=== PATIENT | male | born 1950 | race Caucasian/White ===

== ENCOUNTER 2020-02-20 11:13 | Inpatient (IN) ==
[2020-02-20] MEDS ORDERED: methylPREDNISolone 125 MG/2 ML VIAL IVP ONE (11:35)
[2020-02-20] MEDS ORDERED: cefTRIAXone 1,000 MG in Water for inj. (sterile) 10 ML IVP ONE (11:35)
[2020-02-20] MEDS ORDERED: Albuterol 2.5 MG/3 ML NEBULIZER IH ONE (11:36)
[2020-02-20] MEDS ORDERED: Isovue-370 500 ML BOTTLE IVP ONE (11:37)
[2020-02-20 11:49] LABS: Basophils % 0.3 %; Eosinophils # 0.2 K/mcL (0.0-0.6); Eosinophils % 5.1 %; Hematocrit 31.8 % (37.5-50.1); Hemoglobin 9.3 g/dL (12.9-16.9); Immature Granulocytes % 0.5 % (0-4); Lymphocytes # 0.6 K/mcL (0.6-4.6); Lymphocytes % 15.7 %; Mean Corpuscular HGB Conc 29.2 g/dL (31.6-35.5); Mean Corpuscular Hemoglobin 23.8 pg (28.0-33.3); Mean Corpuscular Volume 81.3 fL (83.0-100.0); Mean Platelet Volume 9.3 fL (9.4-12.4); Monocytes # 0.6 K/mcL (0.0-1.3); Monocytes % 16.8 %; Neutrophils # 2.3 K/mcL (1.6-8.9); Platelet Count 367 K/mcL (140-400); Red Blood Count 3.91 M/mcL (4.19-5.50); Red Cell Distribution Width 18.1 % (11.5-14.5); Segmented Neutrophils % 61.6 %; White Blood Count 3.7 K/mcL (4.3-11.1)
[2020-02-20] MEDS: Azithromycin 500 MG in 0.9 % Sodium Chloride 250 ML IVPB ONE (11:50)
[2020-02-20 11:51] LABS: INR 1.8; Prothrombin Time 20.8 Seconds (9.4-12.1)
[2020-02-20 12:16] LABS: BUN/Creatinine Ratio 10 (6-26); Blood Urea Nitrogen 15 mg/dL (8-23); Calcium 8.9 mg/dL (8.6-10.3); Carbon Dioxide 30 mEq/L (23-29); Chloride 99 mEq/L (98-107); Glucose 81 mg/dL (70-105); Osmolality,Calculated 284 (280-300); Sodium 137 mEq/L (136-145); Troponin I < 0.03 ng/mL (< 0.04); eGFR For African Americans 58 (> 60); eGFR For Non-African Americans 48 (> 60)
[2020-02-20 13:54] LABS: Adenovirus Not Detected (Not Detect); Bordetella Pertussis Not Detected (Not Detect); Chlamydophila pneumoniae Not Detected (Not Detect); Coronavirus 229E Not Detected (Not Detect); Coronavirus HKU1 Not Detected (Not Detect); Coronavirus NL63 Not Detected (Not Detect); Coronavirus OC43 Not Detected (Not Detect); Human Metapneumovirus Not Detected (Not Detect); Human Rhinovirus/Enterovirus Not Detected (Not Detect); Influenza A Subtype 2009 H1 Not Detected (Not Detect); Influenza B Not Detected (Not Detect); Mycoplasma pneumoniae Not Detected (Not Detect); Parainfluenza Virus 1 Not Detected (Not Detect); Parainfluenza Virus 2 Not Detected (Not Detect); Parainfluenza Virus 3 Not Detected (Not Detect); Parainfluenza Virus 4 Not Detected (Not Detect); Respiratory Syncytial Virus Not Detected (Not Detect); SARS-CoV-2 Not Detected (Not Detect)
[2020-02-20] MEDS ORDERED: *HR* Promethazine 25 MG/ML VIAL IVP PRN (14:27)
[2020-02-20] MEDS ORDERED: Naloxone 0.4 MG/ML INJ IVP PRN (14:27)
[2020-02-20] MEDS ORDERED: *HR* Enoxaparin 100 MG/ML SYRINGE SQ ONE (14:32)
[2020-02-20] MEDS ORDERED: Albuterol 2.5 MG/3 ML NEBULIZER IH PRN (15:28)
[2020-02-20] MEDS: Albuterol 2.5 MG/3 ML NEBULIZER IH SCH ×2 (15:44→20:10)
[2020-02-20 16:36] LABS: Bilirubin,Urine Negative (Negative); Blood,Urine Negative (Negative); Clarity,Urine Clear (Clear); Color,Urine Light-Yellow (Yellow); Glucose,Urine (UA) Normal (Normal); Ketones,Urine Negative (Negative); Leukocyte Esterase,Urine Negative (Negative); Nitrite,Urine Negative (Negative); PH,Urine 6.5 pH Units (5.0-8.0); Protein,Urine Negative (Neg-Trace); Specific Gravity,Urine 1.019 (1.010-1.025); Urobilinogen,Urine Normal (Normal)
[2020-02-20] MEDS: *HR* Enoxaparin 100 MG/ML SYRINGE SQ SCH (16:48)
[2020-02-20] MEDS ORDERED: *HR* Warfarin 5 MG TABLET PO ONE (18:00)
[2020-02-20] MEDS ORDERED: Warfarin perPT PO PRN (18:00)
[2020-02-20] MEDS: rOPINIRole 1 MG TABLET PO SCH (20:55)
[2020-02-20] MEDS: traZODone 50 MG TABLET PO SCH (20:55)
[2020-02-20] MEDS: clonazePAM 1 MG TABLET PO SCH (20:55)
[2020-02-21] MEDS ORDERED: Melatonin 3 MG TABLET PO ONE (00:01)
[2020-02-21] MEDS: Albuterol 2.5 MG/3 ML NEBULIZER IH SCH ×6 (00:11→20:01)
[2020-02-21] MEDS: *HR* Enoxaparin 100 MG/ML SYRINGE SQ SCH (03:30)
[2020-02-21] MEDS: clonazePAM 0.5 MG TABLET PO SCH (03:30)
[2020-02-21 05:48] LABS: Prothrombin Time 23.2 Seconds (9.4-12.1)
[2020-02-21 06:02] LABS: Hematocrit 28.2 % (37.5-50.1); Hemoglobin 8.3 g/dL (12.9-16.9); Immature Granulocytes % 0.6 % (0-4); Lymphocytes # 0.3 K/mcL (0.6-4.6); Lymphocytes % 8.2 %; Mean Corpuscular HGB Conc 29.4 g/dL (31.6-35.5); Mean Corpuscular Hemoglobin 23.6 pg (28.0-33.3); Mean Corpuscular Volume 80.1 fL (83.0-100.0); Mean Platelet Volume 9.7 fL (9.4-12.4); Monocytes # 0.1 K/mcL (0.0-1.3); Neutrophils # 3.1 K/mcL (1.6-8.9); Platelet Count 373 K/mcL (140-400); Red Blood Count 3.52 M/mcL (4.19-5.50); Red Cell Distribution Width 17.7 % (11.5-14.5); Segmented Neutrophils % 89.2 %; White Blood Count 3.4 K/mcL (4.3-11.1)
[2020-02-21 06:44] LABS: BUN/Creatinine Ratio 16 (6-26); Blood Urea Nitrogen 22 mg/dL (8-23); Calcium 8.5 mg/dL (8.6-10.3); Carbon Dioxide 26 mEq/L (23-29); Chloride 97 mEq/L (98-107); Glucose 172 mg/dL (70-105); Magnesium 1.8 mg/dL (1.6-2.6); Osmolality,Calculated 287 (280-300); Phosphorous 2.9 mg/dL (2.7-4.5); Potassium 3.5 mEq/L (3.5-5.1); Sodium 135 mEq/L (136-145); eGFR For African Americans > 60 (> 60); eGFR For Non-African Americans 50 (> 60)
[2020-02-21] MEDS: MethylPREDNISolone 40 MG/ML VIAL IVP SCH (08:03)
[2020-02-21] MEDS: rOPINIRole 1 MG TABLET PO SCH ×2 (08:03→20:34)
[2020-02-21] MEDS ORDERED: Ergocalciferol (VIT D2) 50,000 UNIT (1.25MG) CAP PO SCH (10:30)
[2020-02-21] MEDS ORDERED: Azithromycin 500 MG in 0.9 % Sodium Chloride 250 ML IVPB SCH (12:00)
[2020-02-21] MEDS: cefTRIAXone 1,000 MG in 0.9 % Sodium Chloride Mini Bag 100 ML IVPB SCH (12:06)
[2020-02-21] MEDS: Aspirin 325 MG TABLET PO SCH (12:07)
[2020-02-21] MEDS: Gabapentin 300 MG CAPSULE PO SCH ×3 (12:07→20:34)
[2020-02-21] MEDS: Azithromycin 500 MG in 0.9 % Sodium Chloride 250 ML IVPB SCH (13:09)
[2020-02-21] MEDS ORDERED: Ondansetron 4 MG/2 ML VIAL IVP PRN (17:08)
[2020-02-21] MEDS ORDERED: *HR* Warfarin 5 MG TABLET PO ONE (18:00)
[2020-02-21] MEDS: allopurinoL 100 MG TABLET PO SCH (18:26)
[2020-02-21] MEDS ORDERED: clonazePAM 1 MG TABLET PO SCH (20:00)
[2020-02-21] MEDS ORDERED: 0.9 % Sodium Chloride 250 ML ONE (20:23)
[2020-02-21] MEDS: traZODone 50 MG TABLET PO SCH (20:34)
[2020-02-21] MEDS: clonazePAM 1 MG TABLET PO SCH (20:35)
[2020-02-22] MEDS: Albuterol 2.5 MG/3 ML NEBULIZER IH SCH ×6 (00:06→19:55)
[2020-02-22 01:20] LABS: Hemoglobin 8.9 g/dL (12.9-16.9); Immature Granulocytes % 0.7 % (0-4); Lymphocytes # 0.4 K/mcL (0.6-4.6); Lymphocytes % 4.2 %; Mean Corpuscular HGB Conc 29.7 g/dL (31.6-35.5); Mean Corpuscular Hemoglobin 23.7 pg (28.0-33.3); Mean Corpuscular Volume 79.8 fL (83.0-100.0); Mean Platelet Volume 9.2 fL (9.4-12.4); Monocytes # 0.7 K/mcL (0.0-1.3); Platelet Count 391 K/mcL (140-400); Red Blood Count 3.76 M/mcL (4.19-5.50); Red Cell Distribution Width 17.7 % (11.5-14.5); Segmented Neutrophils % 88.1 %
[2020-02-22 01:23] LABS: INR 2.1; Prothrombin Time 24.4 Seconds (9.4-12.1)
[2020-02-22 01:26] LABS: Neutrophils # 8.6 K/mcL (1.6-8.9); White Blood Count 9.7 K/mcL (4.3-11.1)
[2020-02-22 01:37] LABS: BUN/Creatinine Ratio 24 (6-26); Blood Urea Nitrogen 29 mg/dL (8-23); Calcium 8.3 mg/dL (8.6-10.3); Carbon Dioxide 25 mEq/L (23-29); Chloride 97 mEq/L (98-107); Glucose 142 mg/dL (70-105); Osmolality,Calculated 286 (280-300); Phosphorous 3.7 mg/dL (2.7-4.5); Potassium 3.9 mEq/L (3.5-5.1); Sodium 134 mEq/L (136-145); eGFR For African Americans > 60 (> 60); eGFR For Non-African Americans 58 (> 60)
[2020-02-22] MEDS: clonazePAM 0.5 MG TABLET PO SCH (04:30)
[2020-02-22] MEDS: *HR* HYDROcodone/Acet 5/325 mg TABLET PO PRN ×2 (08:11→23:00)
[2020-02-22] MEDS: Aspirin 325 MG TABLET PO SCH (08:11)
[2020-02-22] MEDS: Gabapentin 300 MG CAPSULE PO SCH ×3 (08:11→20:07)
[2020-02-22] MEDS: rOPINIRole 1 MG TABLET PO SCH ×2 (08:11→20:08)
[2020-02-22] MEDS: MethylPREDNISolone 40 MG/ML VIAL IVP SCH (08:12)
[2020-02-22] MEDS: cefTRIAXone 1,000 MG in 0.9 % Sodium Chloride Mini Bag 100 ML IVPB SCH (12:09)
[2020-02-22] MEDS: Azithromycin 500 MG in 0.9 % Sodium Chloride 250 ML IVPB SCH (13:01)
[2020-02-22] MEDS: allopurinoL 100 MG TABLET PO SCH (18:41)
[2020-02-22] MEDS: clonazePAM 1 MG TABLET PO SCH (20:07)
[2020-02-22] MEDS: traZODone 50 MG TABLET PO SCH (20:08)
[2020-02-23] MEDS: Albuterol 2.5 MG/3 ML NEBULIZER IH SCH ×7 (00:14→23:12)
[2020-02-23 01:13] LABS: Basophils % 0.1 %; Eosinophils % 0.4 %; Hematocrit 29.2 % (37.5-50.1); Hemoglobin 8.5 g/dL (12.9-16.9); Immature Granulocytes % 0.8 % (0-4); Lymphocytes # 0.4 K/mcL (0.6-4.6); Lymphocytes % 4.8 %; Mean Corpuscular HGB Conc 29.1 g/dL (31.6-35.5); Mean Corpuscular Hemoglobin 23.4 pg (28.0-33.3); Mean Corpuscular Volume 80.2 fL (83.0-100.0); Mean Platelet Volume 9.1 fL (9.4-12.4); Monocytes # 0.7 K/mcL (0.0-1.3); Monocytes % 7.7 %; Neutrophils # 7.2 K/mcL (1.6-8.9); Platelet Count 396 K/mcL (140-400); Red Blood Count 3.64 M/mcL (4.19-5.50); Segmented Neutrophils % 86.2 %; White Blood Count 8.4 K/mcL (4.3-11.1)
[2020-02-23 01:16] LABS: INR 2.1
[2020-02-23 01:31] LABS: BUN/Creatinine Ratio 23 (6-26); Blood Urea Nitrogen 27 mg/dL (8-23); Calcium 8.1 mg/dL (8.6-10.3); Carbon Dioxide 27 mEq/L (23-29); Chloride 103 mEq/L (98-107); Glucose 141 mg/dL (70-105); Osmolality,Calculated 293 (280-300); Potassium 4.2 mEq/L (3.5-5.1); Sodium 138 mEq/L (136-145); eGFR For African Americans > 60 (> 60); eGFR For Non-African Americans > 60 (> 60)
[2020-02-23] MEDS: clonazePAM 0.5 MG TABLET PO SCH (05:20)
[2020-02-23] MEDS ORDERED: *HR* FentaNYL (PF) 100 MCG/2 ML VIAL IVP ONE (08:47)
[2020-02-23] MEDS ORDERED: *HR* EPINEPHrine 1 MG/10 ML SYRINGE INTRATRACH PRN (08:47)
[2020-02-23] MEDS ORDERED: *HR* Midazolam HCl 5 MG/5 ML VIAL IVP ONE ×2 (08:47→08:58)
[2020-02-23] MEDS ORDERED: Lidocaine Viscous Oral Soln 15 ML SOLUTION MM ONE (08:47)
[2020-02-23] MEDS ORDERED: *HR* FentaNYL (PF) 100 MCG/2 ML VIAL ONE (08:58)
[2020-02-23] MEDS ORDERED: Lidocaine Viscous Oral Soln 15 ML SOLUTION ONE (09:01)
[2020-02-23] MEDS: MethylPREDNISolone 40 MG/ML VIAL IVP SCH (11:34)
[2020-02-23] MEDS: rOPINIRole 1 MG TABLET PO SCH ×2 (11:34→21:57)
[2020-02-23] MEDS: Gabapentin 300 MG CAPSULE PO SCH ×3 (11:34→21:57)
[2020-02-23] MEDS: Aspirin 325 MG TABLET PO SCH (11:34)
[2020-02-23] MEDS: cefTRIAXone 1,000 MG in 0.9 % Sodium Chloride Mini Bag 100 ML IVPB SCH (12:05)
[2020-02-23] MEDS: Azithromycin 500 MG in 0.9 % Sodium Chloride 250 ML IVPB SCH (12:35)
[2020-02-23 15:47] LABS: Appearance of Body Fluid Hazy (Clear); Volume of Body Fluid 16 mL
[2020-02-23] MEDS: allopurinoL 100 MG TABLET PO SCH (17:46)
[2020-02-23] MEDS ORDERED: *HR* Warfarin 5 MG TABLET PO ONE (18:00)
[2020-02-23] MEDS: clonazePAM 1 MG TABLET PO SCH (21:57)
[2020-02-23] MEDS: traZODone 50 MG TABLET PO SCH (21:57)
[2020-02-24 03:34] LABS: Eosinophils % 0.1 %; INR 1.7; Prothrombin Time 19.4 Seconds (9.4-12.1); Red Cell Distribution Width 18.1 % (11.5-14.5)
[2020-02-24 03:35] LABS: Basophils % 0.1 %; Immature Granulocytes % 1.6 % (0-4); Lymphocytes # 0.4 K/mcL (0.6-4.6); Lymphocytes % 5.2 %; Mean Corpuscular Hemoglobin 24.1 pg (28.0-33.3); Mean Corpuscular Volume 82.9 fL (83.0-100.0); Mean Platelet Volume 9.5 fL (9.4-12.4); Monocytes # 0.7 K/mcL (0.0-1.3); Monocytes % 8.9 %; Neutrophils # 6.4 K/mcL (1.6-8.9); Nucleated Red Blood Cells 0.3 /100 WBC (0); Platelet Count 423 K/mcL (140-400); Red Blood Count 3.74 M/mcL (4.19-5.50); Segmented Neutrophils % 84.1 %; White Blood Count 7.6 K/mcL (4.3-11.1)
[2020-02-24] MEDS: Albuterol 2.5 MG/3 ML NEBULIZER IH SCH ×6 (03:36→23:16)
[2020-02-24 03:52] LABS: BUN/Creatinine Ratio 22 (6-26); Blood Urea Nitrogen 26 mg/dL (8-23); Calcium 8.1 mg/dL (8.6-10.3); Carbon Dioxide 26 mEq/L (23-29); Chloride 107 mEq/L (98-107); Glucose 95 mg/dL (70-105); Osmolality,Calculated 295 (280-300); Potassium 4.6 mEq/L (3.5-5.1); Sodium 140 mEq/L (136-145); eGFR For African Americans > 60 (> 60); eGFR For Non-African Americans 60 (> 60)
[2020-02-24] MEDS: clonazePAM 0.5 MG TABLET PO SCH (03:52)
[2020-02-24] MEDS: Menthol 9.1 MG LOZENGE PO PRN (03:52)
[2020-02-24] MEDS: MethylPREDNISolone 40 MG/ML VIAL IVP SCH (07:52)
[2020-02-24] MEDS: rOPINIRole 1 MG TABLET PO SCH ×2 (07:52→20:01)
[2020-02-24] MEDS: Gabapentin 300 MG CAPSULE PO SCH ×3 (07:52→20:01)
[2020-02-24] MEDS: Aspirin 325 MG TABLET PO SCH (07:52)
[2020-02-24] MEDS: *HR* Enoxaparin 120 MG/0.8 ML SYRINGE SQ SCH ×2 (09:13→17:06)
[2020-02-24] MEDS: cefTRIAXone 1,000 MG in 0.9 % Sodium Chloride Mini Bag 100 ML IVPB SCH (12:54)
[2020-02-24] MEDS: Azithromycin 500 MG in 0.9 % Sodium Chloride 250 ML IVPB ONE (14:03)
[2020-02-24] MEDS: Azithromycin 500 MG in 0.9 % Sodium Chloride 250 ML IVPB SCH (14:04)
[2020-02-24] MEDS: allopurinoL 100 MG TABLET PO SCH (17:06)
[2020-02-24] MEDS: Acetaminophen 325 MG TABLET PO PRN (17:11)
[2020-02-24] MEDS ORDERED: *HR* Warfarin 5 MG TABLET PO ONE (18:00)
[2020-02-24] MEDS: traZODone 50 MG TABLET PO SCH (20:01)
[2020-02-24] MEDS: clonazePAM 1 MG TABLET PO SCH (20:01)
[2020-02-25] MEDS: Albuterol 2.5 MG/3 ML NEBULIZER IH SCH ×6 (03:48→23:26)
[2020-02-25 04:25] LABS: Hematocrit 31.4 % (37.5-50.1); Hemoglobin 9.1 g/dL (12.9-16.9); Mean Corpuscular Hemoglobin 23.5 pg (28.0-33.3); Mean Corpuscular Volume 80.9 fL (83.0-100.0); Mean Platelet Volume 8.9 fL (9.4-12.4); Platelet Count 419 K/mcL (140-400); Red Blood Count 3.88 M/mcL (4.19-5.50); Red Cell Distribution Width 18.1 % (11.5-14.5); White Blood Count 9.9 K/mcL (4.3-11.1)
[2020-02-25 04:29] LABS: INR 1.7; Prothrombin Time 19.5 Seconds (9.4-12.1)
[2020-02-25] MEDS: *HR* Enoxaparin 120 MG/0.8 ML SYRINGE SQ SCH ×2 (04:32→16:54)
[2020-02-25] MEDS: clonazePAM 0.5 MG TABLET PO SCH (04:32)
[2020-02-25 04:44] LABS: BUN/Creatinine Ratio 18 (6-26); Blood Urea Nitrogen 24 mg/dL (8-23); Calcium 8.4 mg/dL (8.6-10.3); Carbon Dioxide 31 mEq/L (23-29); Chloride 106 mEq/L (98-107); Glucose 102 mg/dL (70-105); Osmolality,Calculated 296 (280-300); Potassium 4.4 mEq/L (3.5-5.1); Sodium 141 mEq/L (136-145); eGFR For African Americans > 60 (> 60); eGFR For Non-African Americans 54 (> 60)
[2020-02-25 05:25] LABS: Lymphocytes # 1.2 K/mcL (0.6-4.6); Monocytes # 0.2 K/mcL (0.0-1.3); Neutrophils # 8.5 K/mcL (1.6-8.9); Platelet Estimate Normal (Normal)
[2020-02-25] MEDS: Gabapentin 300 MG CAPSULE PO SCH ×3 (07:34→20:17)
[2020-02-25] MEDS: Aspirin 325 MG TABLET PO SCH (07:34)
[2020-02-25] MEDS: MethylPREDNISolone 40 MG/ML VIAL IVP SCH (07:34)
[2020-02-25] MEDS: rOPINIRole 1 MG TABLET PO SCH ×2 (07:34→20:17)
[2020-02-25] MEDS: cefTRIAXone 1,000 MG in 0.9 % Sodium Chloride Mini Bag 100 ML IVPB SCH (12:02)
[2020-02-25] MEDS: Acetaminophen 325 MG TABLET PO PRN (16:53)
[2020-02-25] MEDS ORDERED: *HR* Warfarin 7.5 MG TABLET PO ONE (18:00)
[2020-02-25] MEDS: clonazePAM 1 MG TABLET PO SCH (19:28)
[2020-02-25] MEDS: traZODone 50 MG TABLET PO SCH (20:17)
[2020-02-26 01:11] LABS: INR 1.9; Prothrombin Time 21.5 Seconds (9.4-12.1)
[2020-02-26 01:25] LABS: BUN/Creatinine Ratio 22 (6-26); Blood Urea Nitrogen 26 mg/dL (8-23); Calcium 8.3 mg/dL (8.6-10.3); Carbon Dioxide 27 mEq/L (23-29); Chloride 105 mEq/L (98-107); Glucose 133 mg/dL (70-105); Osmolality,Calculated 293 (280-300); Potassium 4.5 mEq/L (3.5-5.1); Sodium 138 mEq/L (136-145); eGFR For African Americans > 60 (> 60); eGFR For Non-African Americans > 60 (> 60)
[2020-02-26] MEDS: clonazePAM 0.5 MG TABLET PO SCH (03:35)
[2020-02-26] MEDS: Albuterol 2.5 MG/3 ML NEBULIZER IH SCH ×6 (04:11→21:58)
[2020-02-26] MEDS: *HR* Enoxaparin 120 MG/0.8 ML SYRINGE SQ SCH ×2 (05:51→16:53)
[2020-02-26] MEDS: MethylPREDNISolone 40 MG/ML VIAL IVP SCH (08:01)
[2020-02-26] MEDS: Gabapentin 300 MG CAPSULE PO SCH ×3 (08:01→19:54)
[2020-02-26] MEDS: Aspirin 325 MG TABLET PO SCH (08:01)
[2020-02-26] MEDS: rOPINIRole 1 MG TABLET PO SCH ×2 (08:01→19:54)
[2020-02-26] MEDS: Acetaminophen 325 MG TABLET PO PRN (10:23)
[2020-02-26] MEDS: cefTRIAXone 1,000 MG in 0.9 % Sodium Chloride Mini Bag 100 ML IVPB SCH (12:20)
[2020-02-26] MEDS: Menthol 9.1 MG LOZENGE PO PRN ×2 (16:53→20:04)
[2020-02-26] MEDS ORDERED: *HR* Warfarin 5 MG TABLET PO ONE (18:00)
[2020-02-26] MEDS: clonazePAM 1 MG TABLET PO SCH (19:53)
[2020-02-26] MEDS: traZODone 50 MG TABLET PO SCH (19:54)
[2020-02-27 01:35] LABS: INR 1.7; Prothrombin Time 19.8 Seconds (9.4-12.1)
[2020-02-27 01:56] LABS: BUN/Creatinine Ratio 19 (6-26); Blood Urea Nitrogen 24 mg/dL (8-23); Carbon Dioxide 28 mEq/L (23-29); Chloride 105 mEq/L (98-107); Glucose 132 mg/dL (70-105); Osmolality,Calculated 294 (280-300); Potassium 4.8 mEq/L (3.5-5.1); Sodium 139 mEq/L (136-145); eGFR For African Americans > 60 (> 60); eGFR For Non-African Americans 57 (> 60)
[2020-02-27] MEDS: Albuterol 2.5 MG/3 ML NEBULIZER IH SCH ×3 (03:11→11:16)
[2020-02-27] MEDS: clonazePAM 0.5 MG TABLET PO SCH (04:38)
[2020-02-27] MEDS: *HR* Enoxaparin 120 MG/0.8 ML SYRINGE SQ SCH (04:38)
[2020-02-27 06:28] VITALS: BP 121/64
[2020-02-27] MEDS: Aspirin 325 MG TABLET PO SCH (10:38)
[2020-02-27] MEDS: Gabapentin 300 MG CAPSULE PO SCH (10:38)
[2020-02-27] MEDS: rOPINIRole 1 MG TABLET PO SCH (10:38)
[2020-02-27] MEDS: MethylPREDNISolone 40 MG/ML VIAL IVP SCH (10:38)
[2020-02-27] MEDS ORDERED: FLU Vac QV 20-21 (6Month+)/PF 0.5 ML SYRINGE IM ONE (10:50)
== END 2020-02-27 11:45 | disposition home or self-care (01) | DRG 871 ==
LOC: 3BNU 11:13 → EMEROOARM 11:13 → SUATTDRO 14:12 → 3BNU 15:08 → SUATTDRO 02-22 13:21
PROVIDERS: ADMIT Internal Medicine; ATTEND Family Medicine
PROC: ENDOBRF (2020-02-23 08:55)

== ENCOUNTER 2020-04-11 09:03 | Observation (INO) ==
[2020-04-11 09:42] LABS: Basophils % 0.3 %; Hematocrit 37.3 % (37.5-50.1); Hemoglobin 11.6 g/dL (12.9-16.9); Immature Granulocytes % 3.6 % (0-4); Lymphocytes # 0.3 K/mcL (0.6-4.6); Lymphocytes % 2.1 %; Mean Corpuscular HGB Conc 31.1 g/dL (31.6-35.5); Mean Corpuscular Hemoglobin 26.6 pg (28.0-33.3); Mean Corpuscular Volume 85.6 fL (83.0-100.0); Mean Platelet Volume 9.9 fL (9.4-12.4); Monocytes # 0.5 K/mcL (0.0-1.3); Monocytes % 3.1 %; Neutrophils # 13.2 K/mcL (1.6-8.9); Platelet Count 187 K/mcL (140-400); Red Blood Count 4.36 M/mcL (4.19-5.50); Red Cell Distribution Width 23.6 % (11.5-14.5); Segmented Neutrophils % 90.9 %; White Blood Count 14.5 K/mcL (4.3-11.1)
[2020-04-11 09:51] LABS: INR 2.5; Prothrombin Time 27.9 Seconds (9.4-12.1)
[2020-04-11 10:01] LABS: Anisocytosis 2+ (Not Present); BUN/Creatinine Ratio 39 (6-26); Blood Urea Nitrogen 49 mg/dL (8-23); Calcium 8.5 mg/dL (8.6-10.3); Carbon Dioxide 28 mEq/L (23-29); Chloride 97 mEq/L (98-107); Glucose 176 mg/dL (70-105); Hypochromasia Present (Not Present); Large Platelets Present (Not Present); Osmolality,Calculated 299 (280-300); Platelet Estimate Normal (Normal); Potassium 3.9 mEq/L (3.5-5.1); Sodium 136 mEq/L (136-145); Troponin I 0.05 ng/mL (< 0.04); eGFR For African Americans > 60 (> 60); eGFR For Non-African Americans 57 (> 60)
[2020-04-11] MEDS ORDERED: Naloxone 0.4 MG/ML INJ IVP PRN (10:24)
[2020-04-11] MEDS ORDERED: Gadolinium Contrast Agent (WT Based) IV PRN ×2 (11:05→18:48)
[2020-04-11] MEDS ORDERED: Perflutren Lipid Microsphere 1.3 ML in 0.9 % Sodium Chloride 8.7 ML IVP PRN (11:06)
[2020-04-11 11:24] LABS: Bilirubin,Urine Negative (Negative); Blood,Urine Negative (Negative); Clarity,Urine Clear (Clear); Color,Urine Colorless (Yellow); Glucose,Urine (UA) Normal (Normal); Ketones,Urine Negative (Negative); Leukocyte Esterase,Urine Negative (Negative); Nitrite,Urine Negative (Negative); Protein,Urine Negative (Neg-Trace); Specific Gravity,Urine 1.015 (1.010-1.025); Urobilinogen,Urine Normal (Normal)
[2020-04-11 11:40] LABS: Alanine Aminotransferase 34 Units/L (7-52); Albumin 3.8 g/dL (3.5-5.7); Albumin/Globulin Ratio 1.8 (1.1-2.2); Alkaline Phosphatase 40 Units/L (34-104); Aspartate Amino Transferase 17 Units/L (13-39); Bilirubin,Direct 0.1 mg/dL (0.0-0.2); Bilirubin,Indirect 0.3 mg/dL (0.0-1.0); Bilirubin,Total 0.4 mg/dL (0.3-1.0); Globulin 2.1 g/dL (2.4-3.5); Magnesium 1.9 mg/dL (1.6-2.6); Phosphorous 3.8 mg/dL (2.7-4.5); Total Protein 5.9 g/dL (6.4-8.9)
[2020-04-11] MEDS ORDERED: Albuterol 2.5 MG/3 ML NEBULIZER IH PRN (15:00)
[2020-04-11] MEDS: allopurinoL 100 MG TABLET PO SCH (16:40)
[2020-04-11] MEDS: rOPINIRole 1 MG TABLET PO SCH (20:16)
[2020-04-11] MEDS: clonazePAM 1 MG TABLET PO SCH (20:16)
[2020-04-12 02:34] LABS: Basophils % 0.2 %; Eosinophils # 0.1 K/mcL (0.0-0.6); Eosinophils % 0.8 %; Hemoglobin 10.9 g/dL (12.9-16.9); Immature Granulocytes % 2.9 % (0-4); Lymphocytes # 0.7 K/mcL (0.6-4.6); Lymphocytes % 5.9 %; Mean Corpuscular HGB Conc 31.1 g/dL (31.6-35.5); Mean Corpuscular Hemoglobin 27.1 pg (28.0-33.3); Mean Corpuscular Volume 87.1 fL (83.0-100.0); Mean Platelet Volume 10.5 fL (9.4-12.4); Monocytes # 0.8 K/mcL (0.0-1.3); Monocytes % 7.3 %; Neutrophils # 9.4 K/mcL (1.6-8.9); Platelet Count 168 K/mcL (140-400); Red Blood Count 4.02 M/mcL (4.19-5.50); Red Cell Distribution Width 23.6 % (11.5-14.5); Segmented Neutrophils % 82.9 %; White Blood Count 11.3 K/mcL (4.3-11.1)
[2020-04-12] MEDS ORDERED: Acetaminophen 325 MG TABLET PO ONE (02:48)
[2020-04-12 02:57] LABS: BUN/Creatinine Ratio 35 (6-26); Blood Urea Nitrogen 41 mg/dL (8-23); Calcium 8.2 mg/dL (8.6-10.3); Carbon Dioxide 32 mEq/L (23-29); Chloride 96 mEq/L (98-107); Glucose 113 mg/dL (70-105); Osmolality,Calculated 293 (280-300); Potassium 3.5 mEq/L (3.5-5.1); Sodium 136 mEq/L (136-145); eGFR For African Americans > 60 (> 60); eGFR For Non-African Americans > 60 (> 60)
[2020-04-12 03:22] LABS: Anisocytosis 2+ (Not Present); Platelet Estimate Normal (Normal)
[2020-04-12 03:23] LABS: Reactive Lymphocytes Present (Not Present)
[2020-04-12] MEDS: Aspirin 325 MG TABLET PO SCH (08:25)
[2020-04-12] MEDS: rOPINIRole 1 MG TABLET PO SCH ×2 (08:25→19:37)
[2020-04-12] MEDS: hydroCHLOROthiazide 25 MG TABLET PO SCH (08:25)
[2020-04-12] MEDS: Furosemide 40 MG TABLET PO SCH (08:25)
[2020-04-12] MEDS: Magnesium Oxide 400 MG TABLET PO SCH (08:25)
[2020-04-12] MEDS: Acetaminophen 325 MG TABLET PO PRN (13:19)
[2020-04-12] MEDS: Ondansetron ODT 4 MG TAB.RAPDIS SL PRN (17:42)
[2020-04-12] MEDS: allopurinoL 100 MG TABLET PO SCH (17:42)
[2020-04-12] MEDS: clonazePAM 1 MG TABLET PO SCH (19:37)
[2020-04-13 01:34] LABS: Basophils % 0.5 %; Eosinophils # 0.3 K/mcL (0.0-0.6); Eosinophils % 2.9 %; Hematocrit 38.4 % (37.5-50.1); Hemoglobin 12.2 g/dL (12.9-16.9); Immature Granulocytes % 4.8 % (0-4); Lymphocytes # 0.6 K/mcL (0.6-4.6); Lymphocytes % 7.3 %; Mean Corpuscular HGB Conc 31.8 g/dL (31.6-35.5); Mean Corpuscular Hemoglobin 26.8 pg (28.0-33.3); Mean Corpuscular Volume 84.2 fL (83.0-100.0); Mean Platelet Volume 9.7 fL (9.4-12.4); Monocytes # 0.7 K/mcL (0.0-1.3); Monocytes % 7.5 %; Neutrophils # 6.7 K/mcL (1.6-8.9); Platelet Count 171 K/mcL (140-400); Red Blood Count 4.56 M/mcL (4.19-5.50); Red Cell Distribution Width 23.1 % (11.5-14.5); White Blood Count 8.7 K/mcL (4.3-11.1)
[2020-04-13 01:52] LABS: BUN/Creatinine Ratio 33 (6-26); Blood Urea Nitrogen 42 mg/dL (8-23); Calcium 8.1 mg/dL (8.6-10.3); Carbon Dioxide 33 mEq/L (23-29); Chloride 94 mEq/L (98-107); Glucose 99 mg/dL (70-105); Osmolality,Calculated 293 (280-300); Potassium 3.2 mEq/L (3.5-5.1); Sodium 136 mEq/L (136-145); eGFR For African Americans > 60 (> 60); eGFR For Non-African Americans 55 (> 60)
[2020-04-13 02:16] LABS: Anisocytosis 2+ (Not Present); Microcytosis Present (Not Present); Platelet Estimate Normal (Normal); Reactive Lymphocytes Present (Not Present)
[2020-04-13] MEDS: Ondansetron ODT 4 MG TAB.RAPDIS SL PRN (05:52)
[2020-04-13] MEDS ORDERED: Regadenoson 0.4 MG/5 ML SYRINGE IVP ONE (06:41)
[2020-04-13] MEDS ORDERED: Potassium Chloride 20 MEQ, Lidocaine 1% 2 ML in 0.9 % Sodium Chloride 250 ML IVPB ONE (08:15)
[2020-04-13] MEDS: Acetaminophen 325 MG TABLET PO PRN (10:06)
[2020-04-13] MEDS: hydroCHLOROthiazide 25 MG TABLET PO SCH (10:06)
[2020-04-13] MEDS: Furosemide 40 MG TABLET PO SCH (10:07)
[2020-04-13] MEDS: Magnesium Oxide 400 MG TABLET PO SCH (10:07)
[2020-04-13] MEDS: Aspirin 325 MG TABLET PO SCH (10:07)
[2020-04-13] MEDS: rOPINIRole 1 MG TABLET PO SCH ×2 (10:07→19:44)
[2020-04-13] MEDS ORDERED: Isovue-370 500 ML BOTTLE IVP ONE (12:04)
[2020-04-13 12:51] LABS: Adenovirus Not Detected (Not Detect); Bordetella Pertussis Not Detected (Not Detect); Chlamydophila pneumoniae Not Detected (Not Detect); Coronavirus 229E Not Detected (Not Detect); Coronavirus HKU1 Not Detected (Not Detect); Coronavirus NL63 Not Detected (Not Detect); Coronavirus OC43 Not Detected (Not Detect); Human Metapneumovirus Not Detected (Not Detect); Human Rhinovirus/Enterovirus Not Detected (Not Detect); Influenza A Subtype 2009 H1 Not Detected (Not Detect); Influenza B Not Detected (Not Detect); Mycoplasma pneumoniae Not Detected (Not Detect); Parainfluenza Virus 1 Not Detected (Not Detect); Parainfluenza Virus 2 Not Detected (Not Detect); Parainfluenza Virus 3 Not Detected (Not Detect); Parainfluenza Virus 4 Not Detected (Not Detect); Respiratory Syncytial Virus Not Detected (Not Detect); SARS-CoV-2 Not Detected (Not Detect)
[2020-04-13] MEDS: Ringers Solution, Lactated 500 ML IVC SCH ×2 (15:08→15:15)
[2020-04-13] MEDS: allopurinoL 100 MG TABLET PO SCH (15:08)
[2020-04-13 17:13] LABS: INR 1.3; Prothrombin Time 14.4 Seconds (9.4-12.1)
[2020-04-13] MEDS ORDERED: *HR* Warfarin 3 MG TABLET PO ONE (18:00)
[2020-04-13] MEDS ORDERED: Warfarin perPT PO PRN (18:00)
[2020-04-13] MEDS: clonazePAM 1 MG TABLET PO SCH (19:44)
[2020-04-14] MEDS: traZODone 50 MG TABLET PO SCH ×2 (03:40→21:14)
[2020-04-14] MEDS: Acetaminophen 325 MG TABLET PO PRN (03:40)
[2020-04-14 04:41] LABS: Basophils % 0.3 %; Eosinophils # 0.2 K/mcL (0.0-0.6); Eosinophils % 2.4 %; Hematocrit 37.2 % (37.5-50.1); Hemoglobin 11.6 g/dL (12.9-16.9); Immature Granulocytes % 2.2 % (0-4); Lymphocytes # 0.5 K/mcL (0.6-4.6); Lymphocytes % 5.8 %; Mean Corpuscular HGB Conc 31.2 g/dL (31.6-35.5); Mean Corpuscular Hemoglobin 26.7 pg (28.0-33.3); Mean Corpuscular Volume 85.5 fL (83.0-100.0); Mean Platelet Volume 10.3 fL (9.4-12.4); Monocytes # 0.7 K/mcL (0.0-1.3); Monocytes % 7.5 %; Neutrophils # 7.4 K/mcL (1.6-8.9); Platelet Count 145 K/mcL (140-400); Red Blood Count 4.35 M/mcL (4.19-5.50); Red Cell Distribution Width 22.8 % (11.5-14.5); Segmented Neutrophils % 81.8 %; White Blood Count 9.1 K/mcL (4.3-11.1)
[2020-04-14 04:42] LABS: INR 1.2; Prothrombin Time 13.5 Seconds (9.4-12.1)
[2020-04-14 04:57] LABS: BUN/Creatinine Ratio 27 (6-26); Blood Urea Nitrogen 33 mg/dL (8-23); Carbon Dioxide 31 mEq/L (23-29); Chloride 93 mEq/L (98-107); Glucose 120 mg/dL (70-105); Osmolality,Calculated 284 (280-300); Potassium 3.1 mEq/L (3.5-5.1); Sodium 133 mEq/L (136-145); eGFR For African Americans > 60 (> 60); eGFR For Non-African Americans 57 (> 60)
[2020-04-14] MEDS ORDERED: Potassium Chloride 20 MEQ, Lidocaine 1% 2 ML in 0.9 % Sodium Chloride 250 ML IVPB ONE (07:36)
[2020-04-14] MEDS: rOPINIRole 1 MG TABLET PO SCH ×2 (08:14→21:14)
[2020-04-14] MEDS: Magnesium Oxide 400 MG TABLET PO SCH (08:16)
[2020-04-14] MEDS: predniSONE 20 MG TABLET PO SCH (08:16)
[2020-04-14] MEDS: Aspirin 325 MG TABLET PO SCH (08:16)
[2020-04-14] MEDS ORDERED: hydroCHLOROthiazide 25 MG TABLET PO SCH (09:00)
[2020-04-14 15:57] LABS: BUN/Creatinine Ratio 27 (6-26); Blood Urea Nitrogen 34 mg/dL (8-23); Calcium 8.2 mg/dL (8.6-10.3); Carbon Dioxide 31 mEq/L (23-29); Chloride 94 mEq/L (98-107); Glucose 246 mg/dL (70-105); Osmolality,Calculated 292 (280-300); Potassium 4.2 mEq/L (3.5-5.1); Sodium 133 mEq/L (136-145); eGFR For African Americans > 60 (> 60); eGFR For Non-African Americans 56 (> 60)
[2020-04-14] MEDS: allopurinoL 100 MG TABLET PO SCH (16:37)
[2020-04-14] MEDS ORDERED: *HR* Warfarin 5 MG TABLET PO ONE (18:00)
[2020-04-14] MEDS: clonazePAM 1 MG TABLET PO SCH (21:14)
[2020-04-15 01:36] LABS: Basophils % 0.1 %; Eosinophils % 0.4 %; Hematocrit 32.9 % (37.5-50.1); Hemoglobin 10.7 g/dL (12.9-16.9); Immature Granulocytes % 1.6 % (0-4); Lymphocytes # 0.4 K/mcL (0.6-4.6); Lymphocytes % 4.9 %; Mean Corpuscular HGB Conc 32.5 g/dL (31.6-35.5); Mean Corpuscular Hemoglobin 27.7 pg (28.0-33.3); Mean Corpuscular Volume 85.2 fL (83.0-100.0); Mean Platelet Volume 10.6 fL (9.4-12.4); Monocytes # 0.4 K/mcL (0.0-1.3); Monocytes % 4.4 %; Neutrophils # 7.1 K/mcL (1.6-8.9); Platelet Count 145 K/mcL (140-400); Red Blood Count 3.86 M/mcL (4.19-5.50); Red Cell Distribution Width 22.6 % (11.5-14.5); Segmented Neutrophils % 88.6 %
[2020-04-15 01:37] LABS: INR 1.3; Prothrombin Time 14.7 Seconds (9.4-12.1)
[2020-04-15 01:51] LABS: BUN/Creatinine Ratio 35 (6-26); Blood Urea Nitrogen 39 mg/dL (8-23); Calcium 8.1 mg/dL (8.6-10.3); Carbon Dioxide 29 mEq/L (23-29); Chloride 96 mEq/L (98-107); Glucose 156 mg/dL (70-105); Osmolality,Calculated 289 (280-300); Potassium 3.8 mEq/L (3.5-5.1); Sodium 133 mEq/L (136-145); eGFR For African Americans > 60 (> 60); eGFR For Non-African Americans > 60 (> 60)
[2020-04-15 06:16] VITALS: BP 116/59
[2020-04-15] MEDS: rOPINIRole 1 MG TABLET PO SCH (09:02)
[2020-04-15] MEDS: predniSONE 20 MG TABLET PO SCH (09:03)
[2020-04-15] MEDS: Aspirin 325 MG TABLET PO SCH (09:03)
[2020-04-15] MEDS ORDERED: *HR* Warfarin 5 MG TABLET PO ONE (18:00)
[2020-04-17] MEDS ORDERED: Cholecalciferol (D-3) 1,000 UNIT (25MCG) TABLET PO SCH (12:30)
== END 2020-04-15 11:00 | disposition home or self-care (01) ==
LOC: 3BNU 09:03 → EMEROOARM 09:03 → SUATTDRO 12:29 → 3BNU 13:25
PROVIDERS: ADMIT Family Medicine; ATTEND Student in an Organized Health Care Education/Training Program

== ENCOUNTER 2020-05-17 08:13 | Inpatient (IN) ==
[2020-05-17] MEDS ORDERED: Isovue-370 500 ML BOTTLE IVP ONE (09:13)
[2020-05-17 09:15] LABS: Alanine Aminotransferase 22 Units/L (7-52); Albumin 3.7 g/dL (3.5-5.7); Albumin/Globulin Ratio 1.4 (1.1-2.2); Alkaline Phosphatase 112 Units/L (34-104); Amylase 41 Units/L (29-103); Aspartate Amino Transferase 17 Units/L (13-39); BUN/Creatinine Ratio 16 (6-26); Bilirubin,Direct 0.3 mg/dL (0.0-0.2); Bilirubin,Indirect 0.5 mg/dL (0.0-1.0); Bilirubin,Total 0.8 mg/dL (0.3-1.0); Blood Urea Nitrogen 22 mg/dL (8-23); Calcium 8.8 mg/dL (8.6-10.3); Carbon Dioxide 28 mEq/L (23-29); Chloride 102 mEq/L (98-107); Globulin 2.6 g/dL (2.4-3.5); Glucose 101 mg/dL (70-105); Lipase 7 Units/L (11-82); Osmolality,Calculated 293 (280-300); Potassium 4.3 mEq/L (3.5-5.1); Sodium 140 mEq/L (136-145); Total Protein 6.3 g/dL (6.4-8.9); Troponin I 0.14 ng/mL (< 0.04); eGFR For African Americans > 60 (> 60); eGFR For Non-African Americans 52 (> 60)
[2020-05-17 09:30] LABS: Bilirubin,Urine Negative (Negative); Blood,Urine Negative (Negative); Clarity,Urine Clear (Clear); Color,Urine Light-Yellow (Yellow); Glucose,Urine (UA) Normal (Normal); Ketones,Urine Negative (Negative); Leukocyte Esterase,Urine Negative (Negative); Nitrite,Urine Negative (Negative); PH,Urine 6.5 pH Units (5.0-8.0); Protein,Urine Negative (Neg-Trace); Specific Gravity,Urine 1.011 (1.010-1.025); Urobilinogen,Urine Normal (Normal)
[2020-05-17] MEDS ORDERED: 0.9 % Sodium Chloride 1,000 ML IVC ONE (09:31)
[2020-05-17 09:41] LABS: Adenovirus Not Detected (Not Detect); Bordetella Pertussis Not Detected (Not Detect); Chlamydophila pneumoniae Not Detected (Not Detect); Coronavirus 229E Not Detected (Not Detect); Coronavirus HKU1 Not Detected (Not Detect); Coronavirus NL63 Not Detected (Not Detect); Coronavirus OC43 Not Detected (Not Detect); Human Metapneumovirus Not Detected (Not Detect); Human Rhinovirus/Enterovirus Not Detected (Not Detect); Influenza A Subtype 2009 H1 Not Detected (Not Detect); Influenza B Not Detected (Not Detect); Mycoplasma pneumoniae Not Detected (Not Detect); Parainfluenza Virus 1 Not Detected (Not Detect); Parainfluenza Virus 2 Not Detected (Not Detect); Parainfluenza Virus 3 Not Detected (Not Detect); Parainfluenza Virus 4 Not Detected (Not Detect); Respiratory Syncytial Virus Not Detected (Not Detect); SARS-CoV-2 Not Detected (Not Detect)
[2020-05-17] MEDS ORDERED: Piperacillin/Tazobactam 3.375 GM in 0.9 % Sodium Chloride Mini Bag 100 ML IVPB ONE (09:44)
[2020-05-17 10:19] LABS: Basophils # 0.1 K/mcL (0.0-0.2); Basophils % 0.5 %; Eosinophils # 0.3 K/mcL (0.0-0.6); Eosinophils % 2.3 %; Hemoglobin 9.5 g/dL (12.9-16.9); Immature Granulocytes % 1.1 % (0-4); Lymphocytes # 0.7 K/mcL (0.6-4.6); Lymphocytes % 6.6 %; Mean Corpuscular HGB Conc 30.6 g/dL (31.6-35.5); Mean Corpuscular Hemoglobin 28.8 pg (28.0-33.3); Mean Platelet Volume 9.7 fL (9.4-12.4); Monocytes # 0.9 K/mcL (0.0-1.3); Monocytes % 8.3 %; Platelet Count 224 K/mcL (140-400); Red Cell Distribution Width 20.5 % (11.5-14.5); Segmented Neutrophils % 81.2 %; White Blood Count 11.1 K/mcL (4.3-11.1)
[2020-05-17 10:21] LABS: Mean Corpuscular Volume 93.9 fL (83.0-100.0)
[2020-05-17] MEDS ORDERED: Aspirin 81 MG TAB.CHEW PO ONE (10:40)
[2020-05-17] MEDS ORDERED: Naloxone 0.4 MG/ML INJ IVP PRN (10:47)
[2020-05-17] MEDS ORDERED: *HR* Heparin 5,000 UNIT/ML VIAL IVP ONE (14:04)
[2020-05-17] MEDS ORDERED: *HR* Heparin 5,000 UNIT/ML VIAL IVP PRN ×2 (14:04)
[2020-05-17] MEDS ORDERED: MethylPREDNISolone 40 MG/ML VIAL IVP ONE (15:03)
[2020-05-17 15:17] LABS: Hematocrit 31.8 % (37.5-50.1); Hemoglobin 9.5 g/dL (12.9-16.9); Mean Corpuscular HGB Conc 29.9 g/dL (31.6-35.5); Mean Corpuscular Hemoglobin 28.3 pg (28.0-33.3); Mean Corpuscular Volume 94.6 fL (83.0-100.0); Mean Platelet Volume 9.3 fL (9.4-12.4); Platelet Count 214 K/mcL (140-400); Red Blood Count 3.36 M/mcL (4.19-5.50); Red Cell Distribution Width 20.4 % (11.5-14.5); White Blood Count 9.5 K/mcL (4.3-11.1)
[2020-05-17 15:26] LABS: Heparin anti-factor XA UFH < 0.04 IU/mL (0.30-0.70); INR 1.6; Prothrombin Time 17.8 Seconds (9.4-12.1)
[2020-05-17] MEDS: Azithromycin 500 MG in 0.9 % Sodium Chloride 250 ML IVPB SCH (15:46)
[2020-05-17] MEDS ORDERED: Albuterol 2.5 MG/3 ML NEBULIZER IH PRN (15:47)
[2020-05-17] MEDS ORDERED: Nitroglycerin 0.4 MG TAB.SUBL SL PRN (15:47)
[2020-05-17] MEDS: Heparin 25,000UNIT/250ML 1/2NS 25,000 UNIT/250 ML IV.SOLN IVC SCH (15:49)
[2020-05-17] MEDS: allopurinoL 100 MG TABLET PO SCH (17:35)
[2020-05-17] MEDS: Piperacillin/Tazobactam 3.375 GM in 0.9 % Sodium Chloride Mini Bag 100 ML IVPB SCH (19:30)
[2020-05-17] MEDS: rOPINIRole 1 MG TABLET PO SCH (21:25)
[2020-05-17] MEDS: traZODone 50 MG TABLET PO SCH (21:25)
[2020-05-17] MEDS: clonazePAM 1 MG TABLET PO SCH (21:25)
[2020-05-17] MEDS: Gabapentin 300 MG CAPSULE PO SCH (21:25)
[2020-05-17] MEDS: Budesonide/Formoterol 80/4.5 1 PUFF INH IH SCH (22:01)
[2020-05-18] MEDS: Piperacillin/Tazobactam 3.375 GM in 0.9 % Sodium Chloride Mini Bag 100 ML IVPB SCH ×3 (03:16→21:38)
[2020-05-18 07:36] LABS: Basophils % 0.1 %; Hematocrit 29.2 % (37.5-50.1); Hemoglobin 8.9 g/dL (12.9-16.9); Immature Granulocytes % 1.5 % (0-4); Lymphocytes # 0.5 K/mcL (0.6-4.6); Mean Corpuscular HGB Conc 30.5 g/dL (31.6-35.5); Mean Corpuscular Volume 95.1 fL (83.0-100.0); Mean Platelet Volume 9.9 fL (9.4-12.4); Monocytes # 0.4 K/mcL (0.0-1.3); Monocytes % 6.3 %; Neutrophils # 5.8 K/mcL (1.6-8.9); Platelet Count 223 K/mcL (140-400); Red Blood Count 3.07 M/mcL (4.19-5.50); Segmented Neutrophils % 85.1 %; White Blood Count 6.8 K/mcL (4.3-11.1)
[2020-05-18] MEDS: Gabapentin 300 MG CAPSULE PO SCH ×3 (07:39→21:37)
[2020-05-18] MEDS: Magnesium Oxide 400 MG TABLET PO SCH (07:39)
[2020-05-18] MEDS: Zinc Sulfate 220 MG CAPSULE PO SCH (07:39)
[2020-05-18] MEDS: Furosemide 20 MG TABLET PO SCH (07:39)
[2020-05-18] MEDS: rOPINIRole 1 MG TABLET PO SCH ×2 (07:40→21:37)
[2020-05-18] MEDS: Budesonide/Formoterol 80/4.5 1 PUFF INH IH SCH ×2 (07:46→19:59)
[2020-05-18 07:47] LABS: BUN/Creatinine Ratio 19 (6-26); Blood Urea Nitrogen 22 mg/dL (8-23); Calcium 8.5 mg/dL (8.6-10.3); Carbon Dioxide 29 mEq/L (23-29); Chloride 105 mEq/L (98-107); Glucose 154 mg/dL (70-105); Osmolality,Calculated 298 (280-300); Potassium 4.1 mEq/L (3.5-5.1); Sodium 141 mEq/L (136-145); eGFR For African Americans > 60 (> 60); eGFR For Non-African Americans > 60 (> 60)
[2020-05-18] MEDS ORDERED: Aspirin 325 MG TABLET PO SCH (09:00)
[2020-05-18] MEDS: Azithromycin 500 MG in 0.9 % Sodium Chloride 250 ML IVPB SCH (14:22)
[2020-05-18] MEDS ORDERED: 0.9 % Sodium Chloride 250 ML ONE (14:29)
[2020-05-18 14:38] LABS: INR 1.5; Prothrombin Time 17.6 Seconds (9.4-12.1)
[2020-05-18] MEDS: allopurinoL 100 MG TABLET PO SCH (17:40)
[2020-05-18] MEDS ORDERED: *HR* Warfarin 5 MG TABLET PO ONE (18:00)
[2020-05-18] MEDS ORDERED: Warfarin perPT PO PRN (18:00)
[2020-05-18] MEDS: Heparin 25,000UNIT/250ML 1/2NS 25,000 UNIT/250 ML IV.SOLN IVC SCH (18:59)
[2020-05-18] MEDS: traZODone 50 MG TABLET PO SCH (21:37)
[2020-05-18] MEDS: clonazePAM 1 MG TABLET PO SCH (21:38)
[2020-05-19 00:16] LABS: Heparin anti-factor XA UFH 0.37 IU/mL (0.30-0.70)
[2020-05-19 01:23] LABS: INR 1.4; Prothrombin Time 16.1 Seconds (9.4-12.1)
[2020-05-19 01:23] LABS: Basophils % 0.3 %; Eosinophils # 0.5 K/mcL (0.0-0.6); Hematocrit 27.8 % (37.5-50.1); Hemoglobin 8.4 g/dL (12.9-16.9); Immature Granulocytes % 0.8 % (0-4); Mean Corpuscular HGB Conc 30.2 g/dL (31.6-35.5); Mean Corpuscular Hemoglobin 28.2 pg (28.0-33.3); Mean Corpuscular Volume 93.3 fL (83.0-100.0); Mean Platelet Volume 10.3 fL (9.4-12.4); Monocytes % 9.6 %; Neutrophils # 8.1 K/mcL (1.6-8.9); Platelet Count 271 K/mcL (140-400); Red Blood Count 2.98 M/mcL (4.19-5.50); Red Cell Distribution Width 20.2 % (11.5-14.5); Segmented Neutrophils % 75.3 %
[2020-05-19 01:25] LABS: BUN/Creatinine Ratio 20 (6-26); Blood Urea Nitrogen 24 mg/dL (8-23); Calcium 8.1 mg/dL (8.6-10.3); Carbon Dioxide 26 mEq/L (23-29); Chloride 107 mEq/L (98-107); Glucose 112 mg/dL (70-105); Osmolality,Calculated 297 (280-300); Potassium 3.8 mEq/L (3.5-5.1); Sodium 141 mEq/L (136-145); eGFR For African Americans > 60 (> 60); eGFR For Non-African Americans 59 (> 60)
[2020-05-19 01:30] LABS: White Blood Count 10.8 K/mcL (4.3-11.1)
[2020-05-19] MEDS: Piperacillin/Tazobactam 3.375 GM in 0.9 % Sodium Chloride Mini Bag 100 ML IVPB SCH ×3 (04:31→17:58)
[2020-05-19] MEDS: Ondansetron 4 MG/2 ML VIAL IVP PRN (04:46)
[2020-05-19] MEDS: rOPINIRole 1 MG TABLET PO SCH ×2 (09:30→20:26)
[2020-05-19] MEDS: Magnesium Oxide 400 MG TABLET PO SCH (09:30)
[2020-05-19] MEDS: Gabapentin 300 MG CAPSULE PO SCH ×3 (09:30→20:25)
[2020-05-19] MEDS: Furosemide 20 MG TABLET PO SCH (09:30)
[2020-05-19] MEDS: Zinc Sulfate 220 MG CAPSULE PO SCH (09:31)
[2020-05-19] MEDS: Aspirin Enteric Coated 81 MG Tablet PO SCH (09:31)
[2020-05-19] MEDS: Budesonide/Formoterol 80/4.5 1 PUFF INH IH SCH ×2 (10:27→19:53)
[2020-05-19] MEDS: Acetaminophen 325 MG TABLET PO PRN (10:36)
[2020-05-19] MEDS: *HR* OxyCODONE/APAP 5/325 TABLET PO PRN ×2 (11:55→16:05)
[2020-05-19 15:10] LABS: INR 1.5; Prothrombin Time 16.7 Seconds (9.4-12.1)
[2020-05-19] MEDS: Azithromycin 500 MG in 0.9 % Sodium Chloride 250 ML IVPB SCH (15:59)
[2020-05-19] MEDS: Heparin 25,000UNIT/250ML 1/2NS 25,000 UNIT/250 ML IV.SOLN IVC SCH (15:59)
[2020-05-19] MEDS ORDERED: *HR* Heparin 5,000 UNIT/ML VIAL IVP PRN (16:47)
[2020-05-19 17:53] LABS: Hematocrit 27.4 % (37.5-50.1); Hemoglobin 8.1 g/dL (12.9-16.9); Mean Corpuscular HGB Conc 29.6 g/dL (31.6-35.5); Mean Corpuscular Hemoglobin 28.2 pg (28.0-33.3); Mean Corpuscular Volume 95.5 fL (83.0-100.0); Mean Platelet Volume 9.9 fL (9.4-12.4); Platelet Count 258 K/mcL (140-400); Red Blood Count 2.87 M/mcL (4.19-5.50); Red Cell Distribution Width 20.3 % (11.5-14.5)
[2020-05-19] MEDS: allopurinoL 100 MG TABLET PO SCH (17:57)
[2020-05-19 17:59] LABS: INR 1.4; Prothrombin Time 16.4 Seconds (9.4-12.1)
[2020-05-19] MEDS ORDERED: *HR* Warfarin 5 MG TABLET PO ONE (18:00)
[2020-05-19 18:23] LABS: Heparin anti-factor XA UFH 0.3 IU/mL (0.30-0.70)
[2020-05-19] MEDS: clonazePAM 1 MG TABLET PO SCH (20:24)
[2020-05-19] MEDS: traZODone 50 MG TABLET PO SCH (20:25)
[2020-05-20 02:36] LABS: ABG Base Excess 1 mEq/L (-2 to 3); ABG HCO3 27 mEq/L (21-27); ABG Oxygen Saturation 94 % (95-98); ABG PCO2 46 mmHg (35-45); ABG PH 7.37 pH Units (7.32-7.45); ABG PO2 71 mmHg (85-104); ABG TCO2 28 mEq/L (20-26)
[2020-05-20] MEDS: Acetaminophen 325 MG TABLET PO PRN (02:40)
[2020-05-20] MEDS: Piperacillin/Tazobactam 3.375 GM in 0.9 % Sodium Chloride Mini Bag 100 ML IVPB SCH ×3 (02:41→17:44)
[2020-05-20 03:07] LABS: Heparin anti-factor XA UFH 0.3 IU/mL (0.30-0.70)
[2020-05-20 03:08] LABS: Basophils # 0.1 K/mcL (0.0-0.2); Basophils % 0.5 %; Eosinophils % 9.3 %; Hematocrit 32.5 % (37.5-50.1); Hemoglobin 9.6 g/dL (12.9-16.9); Immature Granulocytes % 2.3 % (0-4); Lymphocytes # 1.5 K/mcL (0.6-4.6); Lymphocytes % 13.7 %; Mean Corpuscular HGB Conc 29.5 g/dL (31.6-35.5); Mean Corpuscular Hemoglobin 28.2 pg (28.0-33.3); Mean Corpuscular Volume 95.3 fL (83.0-100.0); Mean Platelet Volume 10.7 fL (9.4-12.4); Monocytes # 0.9 K/mcL (0.0-1.3); Monocytes % 8.4 %; Neutrophils # 7.3 K/mcL (1.6-8.9); Platelet Count 242 K/mcL (140-400); Red Blood Count 3.41 M/mcL (4.19-5.50); Red Cell Distribution Width 20.3 % (11.5-14.5); Segmented Neutrophils % 65.8 %; White Blood Count 11.1 K/mcL (4.3-11.1)
[2020-05-20 03:17] LABS: INR 1.4; Prothrombin Time 15.7 Seconds (9.4-12.1)
[2020-05-20 03:18] LABS: BUN/Creatinine Ratio 15 (6-26); Blood Urea Nitrogen 21 mg/dL (8-23); Calcium 8.7 mg/dL (8.6-10.3); Carbon Dioxide 24 mEq/L (23-29); Chloride 102 mEq/L (98-107); Glucose 92 mg/dL (70-105); Osmolality,Calculated 289 (280-300); Sodium 138 mEq/L (136-145); eGFR For African Americans > 60 (> 60); eGFR For Non-African Americans 52 (> 60)
[2020-05-20] MEDS: Heparin 25,000UNIT/250ML 1/2NS 25,000 UNIT/250 ML IV.SOLN IVC SCH ×2 (03:20→13:45)
[2020-05-20] MEDS: Budesonide/Formoterol 80/4.5 1 PUFF INH IH SCH ×2 (07:34→20:00)
[2020-05-20] MEDS: Zinc Sulfate 220 MG CAPSULE PO SCH (09:07)
[2020-05-20] MEDS: rOPINIRole 1 MG TABLET PO SCH ×2 (09:07→20:52)
[2020-05-20] MEDS: Magnesium Oxide 400 MG TABLET PO SCH (09:07)
[2020-05-20] MEDS: Furosemide 20 MG TABLET PO SCH (09:08)
[2020-05-20] MEDS: Gabapentin 300 MG CAPSULE PO SCH ×3 (09:08→20:52)
[2020-05-20] MEDS: predniSONE 10 MG TABLET PO SCH (09:08)
[2020-05-20] MEDS: Aspirin Enteric Coated 81 MG Tablet PO SCH (09:08)
[2020-05-20 10:36] LABS: Adenovirus Not Detected (Not Detect); Bordetella Pertussis Not Detected (Not Detect); Chlamydophila pneumoniae Not Detected (Not Detect); Coronavirus 229E Not Detected (Not Detect); Coronavirus HKU1 Not Detected (Not Detect); Coronavirus NL63 Not Detected (Not Detect); Coronavirus OC43 Not Detected (Not Detect); Human Metapneumovirus Not Detected (Not Detect); Human Rhinovirus/Enterovirus Not Detected (Not Detect); Influenza A Subtype 2009 H1 Not Detected (Not Detect); Influenza B Not Detected (Not Detect); Mycoplasma pneumoniae Not Detected (Not Detect); Parainfluenza Virus 1 Not Detected (Not Detect); Parainfluenza Virus 2 Not Detected (Not Detect); Parainfluenza Virus 3 Not Detected (Not Detect); Parainfluenza Virus 4 Not Detected (Not Detect); Respiratory Syncytial Virus Not Detected (Not Detect); SARS-CoV-2 Not Detected (Not Detect)
[2020-05-20] MEDS ORDERED: Furosemide 40 MG/4 ML VIAL IVP ONE (10:41)
[2020-05-20] MEDS: Azithromycin 250 MG TABLET PO SCH (14:44)
[2020-05-20] MEDS: allopurinoL 100 MG TABLET PO SCH (17:44)
[2020-05-20] MEDS ORDERED: *HR* Warfarin 7.5 MG TABLET PO ONE (18:00)
[2020-05-20] MEDS: Ipratropium/Albuterol Neb 3 ML IH SCH ×2 (20:00→23:17)
[2020-05-20] MEDS: clonazePAM 1 MG TABLET PO SCH (20:52)
[2020-05-20] MEDS: traZODone 50 MG TABLET PO SCH (20:52)
[2020-05-20] MEDS: Ondansetron 4 MG/2 ML VIAL IVP PRN (20:59)
[2020-05-21] MEDS: Piperacillin/Tazobactam 3.375 GM in 0.9 % Sodium Chloride Mini Bag 100 ML IVPB SCH ×3 (03:51→18:26)
[2020-05-21 03:55] LABS: INR 1.6; Prothrombin Time 17.7 Seconds (9.4-12.1)
[2020-05-21] MEDS: Ipratropium/Albuterol Neb 3 ML IH SCH ×6 (03:56→23:38)
[2020-05-21 04:12] LABS: Basophils % 0.4 %; Eosinophils # 0.5 K/mcL (0.0-0.6); Hematocrit 29.1 % (37.5-50.1); Hemoglobin 8.7 g/dL (12.9-16.9); Immature Granulocytes % 2.5 % (0-4); Lymphocytes # 0.8 K/mcL (0.6-4.6); Lymphocytes % 9.8 %; Mean Corpuscular HGB Conc 29.9 g/dL (31.6-35.5); Mean Corpuscular Volume 93.6 fL (83.0-100.0); Mean Platelet Volume 10.1 fL (9.4-12.4); Monocytes # 0.8 K/mcL (0.0-1.3); Monocytes % 10.8 %; Neutrophils # 5.3 K/mcL (1.6-8.9); Platelet Count 301 K/mcL (140-400); Red Blood Count 3.11 M/mcL (4.19-5.50); Red Cell Distribution Width 19.5 % (11.5-14.5); Segmented Neutrophils % 69.5 %; White Blood Count 7.6 K/mcL (4.3-11.1)
[2020-05-21 04:22] LABS: BUN/Creatinine Ratio 18 (6-26); Blood Urea Nitrogen 23 mg/dL (8-23); Calcium 8.6 mg/dL (8.6-10.3); Carbon Dioxide 30 mEq/L (23-29); Chloride 101 mEq/L (98-107); Glucose 81 mg/dL (70-105); Osmolality,Calculated 291 (280-300); Potassium 3.9 mEq/L (3.5-5.1); Sodium 139 mEq/L (136-145); eGFR For African Americans > 60 (> 60); eGFR For Non-African Americans 54 (> 60)
[2020-05-21] MEDS: *HR* Heparin 5,000 UNIT/ML VIAL IVP PRN ×2 (04:44→17:07)
[2020-05-21] MEDS: *HR* OxyCODONE/APAP 5/325 TABLET PO PRN (06:08)
[2020-05-21] MEDS: Budesonide/Formoterol 80/4.5 1 PUFF INH IH SCH ×2 (07:54→19:52)
[2020-05-21] MEDS: Aspirin Enteric Coated 81 MG Tablet PO SCH (09:18)
[2020-05-21] MEDS: Gabapentin 300 MG CAPSULE PO SCH ×3 (09:18→22:03)
[2020-05-21] MEDS: rOPINIRole 1 MG TABLET PO SCH ×2 (09:18→22:02)
[2020-05-21] MEDS: Magnesium Oxide 400 MG TABLET PO SCH (09:19)
[2020-05-21] MEDS: Zinc Sulfate 220 MG CAPSULE PO SCH (09:19)
[2020-05-21] MEDS: predniSONE 10 MG TABLET PO SCH (09:19)
[2020-05-21] MEDS: Heparin 25,000UNIT/250ML 1/2NS 25,000 UNIT/250 ML IV.SOLN IVC SCH ×2 (12:23→17:12)
[2020-05-21] MEDS ORDERED: *HR* Metoprolol 5 MG/5 ML VIAL IVP ONE (14:48)
[2020-05-21] MEDS: Azithromycin 250 MG TABLET PO SCH (15:21)
[2020-05-21] MEDS: allopurinoL 100 MG TABLET PO SCH (17:06)
[2020-05-21] MEDS ORDERED: Furosemide 40 MG/4 ML VIAL IVP ONE (17:43)
[2020-05-21] MEDS ORDERED: *HR* Warfarin 5 MG TABLET PO ONE (18:00)
[2020-05-21] MEDS: clonazePAM 1 MG TABLET PO SCH (22:01)
[2020-05-21] MEDS: traZODone 50 MG TABLET PO SCH (22:02)
[2020-05-21] MEDS: Acetaminophen 325 MG TABLET PO PRN (22:08)
[2020-05-22] MEDS: Piperacillin/Tazobactam 3.375 GM in 0.9 % Sodium Chloride Mini Bag 100 ML IVPB SCH ×3 (03:06→18:50)
[2020-05-22] MEDS: Ipratropium/Albuterol Neb 3 ML IH SCH ×6 (03:49→22:57)
[2020-05-22] MEDS: Heparin 25,000UNIT/250ML 1/2NS 25,000 UNIT/250 ML IV.SOLN IVC SCH ×2 (04:35→21:12)
[2020-05-22 06:37] LABS: Basophils # 0.1 K/mcL (0.0-0.2); Basophils % 0.7 %; Eosinophils # 0.7 K/mcL (0.0-0.6); Hematocrit 27.8 % (37.5-50.1); Hemoglobin 8.6 g/dL (12.9-16.9); Immature Granulocytes % 2.8 % (0-4); Lymphocytes # 0.9 K/mcL (0.6-4.6); Lymphocytes % 12.2 %; Mean Corpuscular HGB Conc 30.9 g/dL (31.6-35.5); Mean Corpuscular Hemoglobin 28.9 pg (28.0-33.3); Mean Corpuscular Volume 93.3 fL (83.0-100.0); Monocytes # 0.9 K/mcL (0.0-1.3); Monocytes % 11.8 %; Neutrophils # 4.7 K/mcL (1.6-8.9); Platelet Count 331 K/mcL (140-400); Red Blood Count 2.98 M/mcL (4.19-5.50); Red Cell Distribution Width 19.5 % (11.5-14.5); Segmented Neutrophils % 63.5 %; White Blood Count 7.5 K/mcL (4.3-11.1)
[2020-05-22] MEDS: Budesonide/Formoterol 80/4.5 1 PUFF INH IH SCH ×2 (07:46→20:19)
[2020-05-22 08:33] LABS: INR 1.9; Prothrombin Time 21.2 Seconds (9.4-12.1)
[2020-05-22 08:42] LABS: BUN/Creatinine Ratio 15 (6-26); Blood Urea Nitrogen 19 mg/dL (8-23); Calcium 8.8 mg/dL (8.6-10.3); Carbon Dioxide 27 mEq/L (23-29); Chloride 101 mEq/L (98-107); Glucose 101 mg/dL (70-105); Osmolality,Calculated 294 (280-300); Potassium 3.8 mEq/L (3.5-5.1); Sodium 141 mEq/L (136-145); eGFR For African Americans > 60 (> 60); eGFR For Non-African Americans 54 (> 60)
[2020-05-22] MEDS: Magnesium Oxide 400 MG TABLET PO SCH (08:53)
[2020-05-22] MEDS: rOPINIRole 1 MG TABLET PO SCH ×2 (08:53→20:15)
[2020-05-22] MEDS: Aspirin Enteric Coated 81 MG Tablet PO SCH (08:53)
[2020-05-22] MEDS: Zinc Sulfate 220 MG CAPSULE PO SCH (08:53)
[2020-05-22] MEDS: predniSONE 10 MG TABLET PO SCH (08:53)
[2020-05-22] MEDS: Acetaminophen 325 MG TABLET PO PRN ×2 (08:54→18:51)
[2020-05-22] MEDS: Gabapentin 300 MG CAPSULE PO SCH ×3 (08:54→20:15)
[2020-05-22] MEDS ORDERED: Furosemide 40 MG/4 ML VIAL IVP ONE (10:05)
[2020-05-22] MEDS ORDERED: Ergocalciferol (VIT D2) 50,000 UNIT (1.25MG) CAP PO SCH (15:47)
[2020-05-22] MEDS: allopurinoL 100 MG TABLET PO SCH (17:06)
[2020-05-22] MEDS ORDERED: *HR* Warfarin 5 MG TABLET PO ONE (18:00)
[2020-05-22] MEDS: Ondansetron 4 MG/2 ML VIAL IVP PRN (18:51)
[2020-05-22] MEDS: traZODone 50 MG TABLET PO SCH (20:15)
[2020-05-22] MEDS: clonazePAM 1 MG TABLET PO SCH (20:15)
[2020-05-23] MEDS: Piperacillin/Tazobactam 3.375 GM in 0.9 % Sodium Chloride Mini Bag 100 ML IVPB SCH ×2 (03:19→10:51)
[2020-05-23] MEDS: Heparin 25,000UNIT/250ML 1/2NS 25,000 UNIT/250 ML IV.SOLN IVC SCH (03:20)
[2020-05-23] MEDS: Ipratropium/Albuterol Neb 3 ML IH SCH ×6 (03:50→23:06)
[2020-05-23 06:11] LABS: Basophils # 0.1 K/mcL (0.0-0.2); Basophils % 0.5 %; Eosinophils # 0.8 K/mcL (0.0-0.6); Eosinophils % 6.5 %; Hematocrit 31.1 % (37.5-50.1); Hemoglobin 9.3 g/dL (12.9-16.9); Immature Granulocytes % 2.4 % (0-4); Lymphocytes # 1.3 K/mcL (0.6-4.6); Lymphocytes % 11.1 %; Mean Corpuscular HGB Conc 29.9 g/dL (31.6-35.5); Mean Corpuscular Hemoglobin 28.3 pg (28.0-33.3); Mean Corpuscular Volume 94.5 fL (83.0-100.0); Mean Platelet Volume 9.6 fL (9.4-12.4); Monocytes % 8.9 %; Neutrophils # 8.2 K/mcL (1.6-8.9); Nucleated Red Blood Cells 0.3 /100 WBC (0); Platelet Count 430 K/mcL (140-400); Red Blood Count 3.29 M/mcL (4.19-5.50); Red Cell Distribution Width 18.8 % (11.5-14.5); Segmented Neutrophils % 70.6 %
[2020-05-23 06:13] LABS: White Blood Count 11.6 K/mcL (4.3-11.1)
[2020-05-23 06:14] LABS: Prothrombin Time 22.3 Seconds (9.4-12.1)
[2020-05-23 06:26] LABS: BUN/Creatinine Ratio 16 (6-26); Blood Urea Nitrogen 21 mg/dL (8-23); Calcium 9.3 mg/dL (8.6-10.3); Carbon Dioxide 30 mEq/L (23-29); Chloride 98 mEq/L (98-107); Glucose 100 mg/dL (70-105); Osmolality,Calculated 291 (280-300); Potassium 3.7 mEq/L (3.5-5.1); Sodium 139 mEq/L (136-145); eGFR For African Americans > 60 (> 60); eGFR For Non-African Americans 53 (> 60)
[2020-05-23] MEDS: Budesonide/Formoterol 80/4.5 1 PUFF INH IH SCH ×2 (07:19→20:13)
[2020-05-23] MEDS: Aspirin Enteric Coated 81 MG Tablet PO SCH (09:55)
[2020-05-23] MEDS: rOPINIRole 1 MG TABLET PO SCH ×2 (09:55→22:00)
[2020-05-23] MEDS: Gabapentin 300 MG CAPSULE PO SCH ×3 (09:55→22:00)
[2020-05-23] MEDS: Magnesium Oxide 400 MG TABLET PO SCH (09:55)
[2020-05-23] MEDS: predniSONE 10 MG TABLET PO SCH (09:56)
[2020-05-23] MEDS: Zinc Sulfate 220 MG CAPSULE PO SCH (09:56)
[2020-05-23] MEDS ORDERED: predniSONE 20 MG TABLET PO ONE (10:30)
[2020-05-23] MEDS ORDERED: predniSONE 20 MG TABLET PO SCH (10:30)
[2020-05-23] MEDS: allopurinoL 100 MG TABLET PO SCH (17:38)
[2020-05-23] MEDS ORDERED: *HR* Warfarin 5 MG TABLET PO ONE (18:00)
[2020-05-23] MEDS: Ondansetron 4 MG/2 ML VIAL IVP PRN (18:24)
[2020-05-23] MEDS: traZODone 50 MG TABLET PO SCH (22:00)
[2020-05-23] MEDS: clonazePAM 1 MG TABLET PO SCH (22:00)
[2020-05-24] MEDS: Ipratropium/Albuterol Neb 3 ML IH SCH ×6 (03:56→23:06)
[2020-05-24 07:31] LABS: Basophils % 0.4 %; Eosinophils % 0.4 %; Hematocrit 26.8 % (37.5-50.1); Hemoglobin 8.3 g/dL (12.9-16.9); Lymphocytes # 0.6 K/mcL (0.6-4.6); Mean Corpuscular Hemoglobin 28.7 pg (28.0-33.3); Mean Corpuscular Volume 92.7 fL (83.0-100.0); Mean Platelet Volume 9.5 fL (9.4-12.4); Monocytes # 0.7 K/mcL (0.0-1.3); Monocytes % 6.4 %; Neutrophils # 8.9 K/mcL (1.6-8.9); Nucleated Red Blood Cells 0.2 /100 WBC (0); Platelet Count 392 K/mcL (140-400); Red Blood Count 2.89 M/mcL (4.19-5.50); Red Cell Distribution Width 18.8 % (11.5-14.5); Segmented Neutrophils % 82.8 %; White Blood Count 10.8 K/mcL (4.3-11.1)
[2020-05-24] MEDS: Budesonide/Formoterol 80/4.5 1 PUFF INH IH SCH ×2 (07:39→23:06)
[2020-05-24 07:41] LABS: INR 1.8; Prothrombin Time 20.9 Seconds (9.4-12.1)
[2020-05-24 07:58] LABS: BUN/Creatinine Ratio 15 (6-26); Blood Urea Nitrogen 16 mg/dL (8-23); Calcium 9.1 mg/dL (8.6-10.3); Carbon Dioxide 29 mEq/L (23-29); Chloride 104 mEq/L (98-107); Glucose 145 mg/dL (70-105); Osmolality,Calculated 294 (280-300); Potassium 4.7 mEq/L (3.5-5.1); Sodium 140 mEq/L (136-145); eGFR For African Americans > 60 (> 60); eGFR For Non-African Americans > 60 (> 60)
[2020-05-24] MEDS: Magnesium Oxide 400 MG TABLET PO SCH (09:11)
[2020-05-24] MEDS: rOPINIRole 1 MG TABLET PO SCH ×2 (09:11→20:07)
[2020-05-24] MEDS: Aspirin Enteric Coated 81 MG Tablet PO SCH (09:11)
[2020-05-24] MEDS: Gabapentin 300 MG CAPSULE PO SCH ×3 (09:11→20:07)
[2020-05-24] MEDS: Zinc Sulfate 220 MG CAPSULE PO SCH (09:11)
[2020-05-24] MEDS: predniSONE 20 MG TABLET PO SCH (09:11)
[2020-05-24] MEDS ORDERED: *HR* Warfarin 7.5 MG TABLET PO ONE (18:00)
[2020-05-24] MEDS: allopurinoL 100 MG TABLET PO SCH (18:12)
[2020-05-24] MEDS: traZODone 50 MG TABLET PO SCH (20:07)
[2020-05-24] MEDS: clonazePAM 1 MG TABLET PO SCH (20:07)
[2020-05-25] MEDS: Ipratropium/Albuterol Neb 3 ML IH SCH ×5 (03:40→20:14)
[2020-05-25 07:28] LABS: Hematocrit 28.7 % (37.5-50.1); Hemoglobin 8.6 g/dL (12.9-16.9); Mean Corpuscular Hemoglobin 28.7 pg (28.0-33.3); Mean Corpuscular Volume 95.7 fL (83.0-100.0); Mean Platelet Volume 9.6 fL (9.4-12.4); Nucleated Red Blood Cells 0.4 /100 WBC (0); Platelet Count 438 K/mcL (140-400); Red Cell Distribution Width 19.3 % (11.5-14.5); White Blood Count 13.5 K/mcL (4.3-11.1)
[2020-05-25 07:34] LABS: INR 1.9; Prothrombin Time 21.9 Seconds (9.4-12.1)
[2020-05-25 07:50] LABS: BUN/Creatinine Ratio 21 (6-26); Blood Urea Nitrogen 25 mg/dL (8-23); Calcium 9.1 mg/dL (8.6-10.3); Carbon Dioxide 27 mEq/L (23-29); Chloride 106 mEq/L (98-107); Glucose 140 mg/dL (70-105); Osmolality,Calculated 299 (280-300); Potassium 4.6 mEq/L (3.5-5.1); Sodium 141 mEq/L (136-145); eGFR For African Americans > 60 (> 60); eGFR For Non-African Americans > 60 (> 60)
[2020-05-25] MEDS: Budesonide/Formoterol 80/4.5 1 PUFF INH IH SCH ×2 (08:13→20:14)
[2020-05-25] MEDS: rOPINIRole 1 MG TABLET PO SCH ×2 (08:13→20:27)
[2020-05-25] MEDS: Aspirin Enteric Coated 81 MG Tablet PO SCH (08:14)
[2020-05-25] MEDS: Magnesium Oxide 400 MG TABLET PO SCH (08:14)
[2020-05-25] MEDS: Gabapentin 300 MG CAPSULE PO SCH ×3 (08:14→20:27)
[2020-05-25] MEDS: predniSONE 20 MG TABLET PO SCH (08:14)
[2020-05-25] MEDS: Zinc Sulfate 220 MG CAPSULE PO SCH (08:14)
[2020-05-25 08:17] LABS: Lymphocytes # 0.5 K/mcL (0.6-4.6); Monocytes # 2.2 K/mcL (0.0-1.3); Neutrophils # 10.8 K/mcL (1.6-8.9)
[2020-05-25] MEDS: allopurinoL 100 MG TABLET PO SCH (16:57)
[2020-05-25] MEDS ORDERED: *HR* Warfarin 5 MG TABLET PO ONE (18:00)
[2020-05-25] MEDS: traZODone 50 MG TABLET PO SCH (20:27)
[2020-05-25] MEDS: clonazePAM 1 MG TABLET PO SCH (20:27)
[2020-05-25] MEDS: Acetaminophen 325 MG TABLET PO PRN (22:19)
[2020-05-26] MEDS: Ipratropium/Albuterol Neb 3 ML IH SCH ×7 (00:25→23:48)
[2020-05-26 02:22] LABS: Hemoglobin 8.6 g/dL (12.9-16.9); Mean Corpuscular HGB Conc 29.7 g/dL (31.6-35.5); Mean Corpuscular Hemoglobin 28.3 pg (28.0-33.3); Mean Corpuscular Volume 95.4 fL (83.0-100.0); Mean Platelet Volume 9.5 fL (9.4-12.4); Nucleated Red Blood Cells 0.7 /100 WBC (0); Platelet Count 415 K/mcL (140-400); Red Blood Count 3.04 M/mcL (4.19-5.50); Red Cell Distribution Width 19.6 % (11.5-14.5); White Blood Count 15.5 K/mcL (4.3-11.1)
[2020-05-26 02:25] LABS: INR 2.4; Prothrombin Time 27.3 Seconds (9.4-12.1)
[2020-05-26 02:41] LABS: BUN/Creatinine Ratio 33 (6-26); Blood Urea Nitrogen 34 mg/dL (8-23); Calcium 8.7 mg/dL (8.6-10.3); Carbon Dioxide 23 mEq/L (23-29); Chloride 105 mEq/L (98-107); Glucose 125 mg/dL (70-105); Osmolality,Calculated 295 (280-300); Potassium 4.6 mEq/L (3.5-5.1); Sodium 138 mEq/L (136-145); eGFR For African Americans > 60 (> 60); eGFR For Non-African Americans > 60 (> 60)
[2020-05-26 02:47] LABS: Lymphocytes # 0.9 K/mcL (0.6-4.6); Monocytes # 0.6 K/mcL (0.0-1.3)
[2020-05-26] MEDS: Budesonide/Formoterol 80/4.5 1 PUFF INH IH SCH ×2 (07:31→19:43)
[2020-05-26] MEDS: Gabapentin 300 MG CAPSULE PO SCH ×3 (08:11→21:23)
[2020-05-26] MEDS: Magnesium Oxide 400 MG TABLET PO SCH (08:11)
[2020-05-26] MEDS: Aspirin Enteric Coated 81 MG Tablet PO SCH (08:11)
[2020-05-26] MEDS: predniSONE 20 MG TABLET PO SCH (08:11)
[2020-05-26] MEDS: Zinc Sulfate 220 MG CAPSULE PO SCH (08:11)
[2020-05-26] MEDS: rOPINIRole 1 MG TABLET PO SCH ×2 (08:11→21:23)
[2020-05-26] MEDS: Acetaminophen 325 MG TABLET PO PRN (17:32)
[2020-05-26] MEDS: allopurinoL 100 MG TABLET PO SCH (17:32)
[2020-05-26] MEDS ORDERED: *HR* Warfarin 2.5 MG TABLET PO ONE (18:00)
[2020-05-26] MEDS: clonazePAM 1 MG TABLET PO SCH (21:23)
[2020-05-26] MEDS: traZODone 50 MG TABLET PO SCH (21:23)
[2020-05-27] MEDS: Ipratropium/Albuterol Neb 3 ML IH SCH ×4 (03:47→15:58)
[2020-05-27] MEDS: Budesonide/Formoterol 80/4.5 1 PUFF INH IH SCH (07:22)
[2020-05-27 07:53] VITALS: BP 147/80
[2020-05-27 08:17] LABS: Hematocrit 30.3 % (37.5-50.1); Hemoglobin 9.1 g/dL (12.9-16.9); Mean Corpuscular Hemoglobin 28.5 pg (28.0-33.3); Mean Platelet Volume 9.4 fL (9.4-12.4); Nucleated Red Blood Cells 0.5 /100 WBC (0); Platelet Count 415 K/mcL (140-400); Red Blood Count 3.19 M/mcL (4.19-5.50); Red Cell Distribution Width 19.5 % (11.5-14.5)
[2020-05-27 08:20] LABS: INR 2.3; Prothrombin Time 26.4 Seconds (9.4-12.1)
[2020-05-27 08:38] LABS: BUN/Creatinine Ratio 23 (6-26); Blood Urea Nitrogen 28 mg/dL (8-23); Calcium 9.1 mg/dL (8.6-10.3); Carbon Dioxide 28 mEq/L (23-29); Chloride 105 mEq/L (98-107); Glucose 82 mg/dL (70-105); Osmolality,Calculated 297 (280-300); Sodium 141 mEq/L (136-145); eGFR For African Americans > 60 (> 60); eGFR For Non-African Americans 58 (> 60)
[2020-05-27] MEDS: predniSONE 20 MG TABLET PO SCH (08:54)
[2020-05-27] MEDS: rOPINIRole 1 MG TABLET PO SCH (08:54)
[2020-05-27] MEDS: Gabapentin 300 MG CAPSULE PO SCH ×2 (08:54→14:00)
[2020-05-27] MEDS: Magnesium Oxide 400 MG TABLET PO SCH (08:55)
[2020-05-27] MEDS: Aspirin Enteric Coated 81 MG Tablet PO SCH (08:55)
[2020-05-27] MEDS: Zinc Sulfate 220 MG CAPSULE PO SCH (08:55)
[2020-05-27 09:31] LABS: Eosinophils # 0.5 K/mcL (0.0-0.6); Lymphocytes # 0.9 K/mcL (0.6-4.6); Monocytes # 1.2 K/mcL (0.0-1.3); Neutrophils # 11.1 K/mcL (1.6-8.9)
[2020-05-27 09:32] LABS: Ovalocytes 1+ (Not Present); Schistocytes 1+ (Not Present)
[2020-05-27 09:33] LABS: Anisocytosis 1+ (Not Present); Poikilocytosis 1+ (Not Present)
[2020-05-27] MEDS: *HR* OxyCODONE/APAP 5/325 TABLET PO PRN (10:06)
[2020-05-27] MEDS ORDERED: *HR* Warfarin 5 MG TABLET PO ONE (18:00)
== END 2020-05-27 17:36 | disposition home health service (06) | DRG 871 ==
LOC: EMEROOARM 08:13 → 3ANU 08:13 → SUATTDRO 05-18 14:54 → 3ANU 05-20 14:53
PROVIDERS: ADMIT Internal Medicine; ATTEND Student in an Organized Health Care Education/Training Program